=== PATIENT | female | born 1990 ===

== ENCOUNTER 2018-05-21 13:18 | Emergency (ER) | payer SELFPAY ==
[2018-05-21 13:35] VITALS: BP 139/74
[2018-05-21] MEDS ORDERED: NACL 0.9% 1000 ML 1,000 ML IV ONE (13:35)
[2018-05-21 13:58] LABS: Basophils # (Auto) 0.1 K/mm3 (0.0-0.1); Basophils % (Auto) 0.8 % (0.0-1.8); Eosinophils # (Auto) 0.1 K/mm3 (0.0-0.4); Eosinophils % (Auto) 1.1 % (0.0-4.3); Hematocrit 36.2 % (30.3-42.9); Hemoglobin 12.3 gm/dl (10.1-14.3); Lymphocytes # (Auto) 2.6 K/mm3 (1.2-5.4); Lymphocytes % (Auto) 27.1 % (13.4-35.0); Mean Corpuscular HGB Conc 34 % (30-34); Mean Corpuscular Volume 91 fl (79-97); Monocytes # (Auto) 0.5 K/mm3 (0.0-0.8); Monocytes % (Auto) 5.1 % (0.0-7.3); Platelet Count 385 K/mm3 (140-440); Red Blood Count 3.98 M/mm3 (3.65-5.03); Red Cell Distribution Width 13.3 % (13.2-15.2)
[2018-05-21 14:27] LABS: Alanine Aminotransferase 7 units/L (7-56); Albumin 3.9 g/dL (3.9-5); BUN/Creatinine Ratio 10; Blood Urea Nitrogen 6 mg/dL (7-17); Hemolysis Index 8
[2018-05-21] MEDS ORDERED: REGLAN PO ONE (16:15)
[2018-05-21] MEDS ORDERED: TYLENOL PO ONE (16:15)
--- NOTE | 2018-05-21 16:18 | Emergency Department Report ---
Addendum entered and electronically signed by APRIL VALERIO NP 05/25/18 11:35: Blank Doc - Documentation Documentation: Patient came in today for her discharge packet that she has been called to receive after patient Eloped. Patient is not known to me. Will print her packet and give it to patient with medications that was prescribed to her. Original Note: <KRISTIN RAJPUT A - Last Filed: 05/21/18 22:53> ED Abdominal Pain HPI - General Chief Complaint: Abdominal Pain Stated Complaint: LOWER ABD PAIN/ECTOPIC PREG Time Seen by Provider: 05/21/18 16:06 - History of Present Illness Initial Comments: Patient is a 27-year-old Female who presents to ED complaining of lower pelvic pain saying that she is proximal . Patient states she has not been seen to an MECHANICAL EQUIPMENT SALES ENGINEER for this . Patient states last menstrual period is 02/10/2018. Patient denies vaginal bleeding, leakage of fluids. Patient does mention that she has slight discharge. She denies dysuria, - Related Data Previous Rx's Medication Instructions Recorded Last Taken Type Acetaminophen [Tylenol] 325 mg PO TID #30 capsule 05/21/18 Unknown Rx Doxylamine Succinate/Vit B6 2 each PO QHS #40 tablet. 05/21/18 Unknown Rx [Francis Cuellar 10-10 mg Tablet] Nitrofurantoin Monohyd/M-Cryst 100 mg PO BID #14 capsule 05/21/18 Unknown Rx [Macrobid 100 mg Capsule] metroNIDAZOLE 0.75% [Vandazole 1 applicator VG QHS 5 Days #1 tube 05/21/18 Unknown Rx 0.75% VAGINAL] Allergies Allergy/AdvReac Type Severity Reaction Status Date / Time No Known Allergies Allergy Unverified 05/21/18 13:35 ED Past Medical Hx - Medications Home Medications: Home Medications Medication Instructions Recorded Confirmed Last Taken Type Acetaminophen [Tylenol] 325 mg PO TID #30 capsule 05/21/18 Unknown Rx Doxylamine Succinate/Vit B6 2 each PO QHS #40 tablet. 05/21/18 Unknown Rx [Francis Cuellar 10-10 mg Tablet] Nitrofurantoin Monohyd/M-Cryst 100 mg PO BID #14 capsule 05/21/18 Unknown Rx [Macrobid 100 mg Capsule] metroNIDAZOLE 0.75% [Vandazole 1 applicator VG QHS 5 Days #1 tube 05/21/18 Unknown Rx 0.75% VAGINAL] ED Physical Exam - External exam: Present: normal external exam. Absent: erythema, swelling, lesions, lacerations, bleeding Speculum exam: Present: vaginal discharge, cervical discharge. Absent: erythema, vaginal bleeding, foreign body, laceration Bi-manual exam: Present: adnexal tenderness (left). Absent: cervical motion tendernes ED Medical Decision Making - Lab Data Result diagrams: 05/21/18 13:41 05/21/18 13:41 - Radiology Data Radiology results: report reviewed, image reviewed FINAL REPORT EXAM: US OB lt; = 14 WEEKS FETUS HISTORY: Lower abdominal pain last menstrual period February 13, 2018. Estimated gestational age by dates is 13 weeks 6 days. TECHNIQUE: Transabdominal grayscale and color-flow imaging of the pelvis was performed. Comparison: None FINDINGS: The uterus measures 14.4 centimeters x 9.6 centimeters x 9.4 centimeters. There is demonstration of an intrauterine gestation. Estimated gestational age by measurements of biparietal diameter (2.34 centimeters) is 13 weeks 6 days and femoral length (1.3 centimeters) is 13 weeks 6 days. heart rate is measured at 152 beats per minute. The technologist notes visualization of body movements during real-time examination. The right ovary measures 2.8 centimeters x 1.3 centimeters x 4.2 centimeters and is unremarkable in appearance. The left ovary measures 3.4 centimeters x 2.1 centimeters x 2.7 centimeters and is unremarkable in appearance. No free fluid is demonstrated in the pelvis. IMPRESSION: 1. Demonstration of a single living intrauterine gestation with estimated gestational age of 13 weeks 6 days. - Medical Decision Making 27-year-old female presents with bilateral ligament pain and . Patient also positive for bacterial vaginitis. Patient left the ED weight weight area before ultrasound results came back. I called patient's phone number given on chart. Spoke to patient's mother is Brandee Trejo and discussed with the mother that patient is to return to the ED for treatment and discharge report Mother verifies that she will pass on this to the patient to return to the ED for prescriptions and paperwork MECHANICAL EQUIPMENT SALES ENGINEER referral was given to patient. I had initially discussed with the patient to follow up with an MECHANICAL EQUIPMENT SALES ENGINEER for care. Signed after my evaluation of palpation patient seemed in no acute or respiratory distress. Vital signs are normal. ED Disposition Clinical Impression: Bacterial vaginitis Abdominal pain Qualifiers: Abdominal location: lower abdomen, unspecified Qualified Code(s): R10.30 - Lower abdominal pain, unspecified UTI (urinary tract infection) during Qualifiers: Trimester: second trimester Qualified Code(s): O23.42 - Unspecified infection of urinary tract in , second trimester Disposition: ELOPED Is pt being admited?: No Does the pt Need Aspirin: No Condition: Stable Instructions: Bacterial Vaginosis (ED), Urinary Tract Infection in Women (ED), Abdominal Pain in (ED) Additional Instructions: Make sure to follow up with the MECHANICAL EQUIPMENT SALES ENGINEER as discussed. Take all your medications as you've been prescribed. If you have any worsening symptoms or develop new symptoms please return to ED immediately. Prescriptions: Doxylamine Succinate/Vit B6 [Diclegis Dr 10-10 mg Tablet] 2 each PO QHS #40 tablet. metroNIDAZOLE 0.75% [Vandazole 0.75% VAGINAL] 1 applicator VG QHS 5 Days #1 tube Acetaminophen [Tylenol] 325 mg PO TID #30 capsule Nitrofurantoin Monohyd/M-Cryst [Macrobid 100 mg Capsule] 100 mg PO BID #14 capsule Referrals: PRIMARY CARE,MD [Primary Care Provider] - 3-5 Days ALETHEA GALLEGOS MD [Referring] - 3-5 Days MINH MITCHELL MD [Referring] - 3-5 Days SADIE MITCHELL MD [Referring] - 3-5 Days SONIDO HERNANDEZ [Staff Physician] - 3-5 Days Forms: STI Treatment and Prevention, Work/School Release Form(ED) <BABAK MONTEIRO - Last Filed: 05/22/18 20:22> ED Abdominal Pain HPI - General Source: patient Mode of arrival: Ambulatory Limitations: No Limitations - History of Present Illness Complaint: abdominal pain -: Gradual Location: LLQ, RLQ, suprapubic Radiation: none Migration to: no migration Severity: moderate Severity scale (0 -10): 4 Quality: cramping, sharp Consistency: constant Improves With: nothing Worsens With: nothing Associated Symptoms: nausea, vomiting - Related Data LMP (females 10-50): other (4 months) ED Review of Systems ROS: Stated complaint: LOWER ABD PAIN/ECTOPIC PREG Other details as noted in HPI Comment: All other systems reviewed and negative Constitutional: denies: chills, fever Eyes: denies: eye pain, eye discharge, vision change ENT: denies: ear pain, throat pain Respiratory: denies: cough, shortness of breath, wheezing Cardiovascular: denies: chest pain, palpitations Endocrine: no symptoms reported Gastrointestinal: abdominal pain, nausea, vomiting. denies: diarrhea Genitourinary: denies: urgency, dysuria, discharge Musculoskeletal: denies: back pain, joint swelling, arthralgia Skin: denies: rash, lesions Neurological: denies: headache, weakness, paresthesias Psychiatric: denies: anxiety, depression Hematological/Lymphatic: denies: easy bleeding, easy bruising ED Past Medical Hx - Past Medical History Previous Medical History?: No - Surgical History Past Surgical History?: No - Social History Smoking Status: Current Every Day Smoker Substance Use Type: None ED Physical Exam - General Limitations: No Limitations General appearance: alert, in no apparent distress - Head Head exam: Present: atraumatic, normocephalic - Eye Eye exam: Present: normal appearance - ENT ENT exam: Present: mucous membranes moist - Neck Neck exam: Present: normal inspection - Respiratory Respiratory exam: Present: normal lung sounds bilaterally. Absent: respiratory distress - Cardiovascular Cardiovascular Exam: Present: regular rate, normal rhythm. Absent: systolic murmur, diastolic murmur, rubs, gallop - GI/Abdominal GI/Abdominal exam: Present: soft, tenderness (Lower abdomen mild tenederness to palpation.), normal bowel sounds - Rectal Rectal exam: Present: deferred - Extremities Exam Extremities exam: Present: normal inspection, full ROM, normal capillary refill - Back Exam Back exam: Present: normal inspection, full ROM - Neurological Exam Neurological exam: Present: alert, oriented X3 - Psychiatric Psychiatric exam: Present: normal affect, normal mood - Skin Skin exam: Present: warm, dry, intact, normal color. Absent: rash ED Course Vital Signs 05/21/18 05/21/18 05/21/18 13:33 16:02 16:59 Temperature 98.6 F Pulse Rate 89 Respiratory 18 17 18 Rate Blood Pressure 139/74 O2 Sat by Pulse 98 Oximetry ED Medical Decision Making - Lab Data Result diagrams: 05/21/18 13:41 05/21/18 13:41 Lab Results 05/21/18 05/21/18 05/21/18 Range/Units 13:41 13:41 13:41 WBC 9.5 (4.5-11.0) K/mm3 RBC 3.98 (3.65-5.03) M/mm3 Hgb 12.3 (10.1-14.3) gm/dl Hct 36.2 (30.3-42.9) % MCV 91 (79-97) fl MCH 31 (28-32) pg MCHC 34 (30-34) % RDW 13.3 (13.2-15.2) % Plt Count 385 (140-440) K/mm3 Lymph % (Auto) 27.1 (13.4-35.0) % [place] % (Auto) 5.1 (0.0-7.3) % Eos % (Auto) 1.1 (0.0-4.3) % Baso % (Auto) 0.8 (0.0-1.8) % Lymph # 2.6 (1.2-5.4) K/mm3 [place] # 0.5 (0.0-0.8) K/mm3 Eos # 0.1 (0.0-0.4) K/mm3 Baso # 0.1 (0.0-0.1) K/mm3 Seg Neutrophils % 65.9 (40.0-70.0) % Seg Neutrophils # 6.2 (1.8-7.7) K/mm3 Sodium 137 (137-145) mmol/L Potassium 3.8 (3.6-5.0) mmol/L Chloride 100.6 (98-107) mmol/L Carbon Dioxide 24 (22-30) mmol/L Anion Gap 16 mmol/L BUN 6 L (7-17) mg/dL Creatinine 0.6 L (0.7-1.2) mg/dL Estimated GFR > 60 ml/min BUN/Creatinine Ratio 10 % Glucose 85 (65-100) mg/dL Calcium 9.0 (8.4-10.2) mg/dL Total Bilirubin < 0.20 (0.1-1.2) mg/dL AST 12 (5-40) units/L ALT 7 (7-56) units/L Alkaline Phosphatase 41 (35-129) units/L Total Protein 6.5 (6.3-8.2) g/dL Albumin 3.9 (3.9-5) g/dL Albumin/Globulin Ratio 1.5 % HCG, Quant 60495 H (0-4) mIU/mL - Radiology Data Radiology results: report reviewed, image reviewed Critical care attestation.: If time is entered above; I have spent that time in minutes in the direct care of this critically ill patient, excluding procedure time. ED Disposition Is pt being admited?: No Does the pt Need Aspirin: No
[2018-05-21 18:29] LABS: Bacteria,Urine 1+ /HPF (Negative); Bilirubin,Urine NEG (Negative); Blood,Urine NEG (Negative); Color,Urine Yellow (Yellow); Mucus,Urine 3+ /HPF; Urobilinogen,Urine < 2.0 mg/dL (<2.0)
--- NOTE | 2018-05-21 19:41 | Ultrasound Report ---
FINAL REPORT EXAM: US OB <= 14 WEEKS FETUS HISTORY: Lower abdominal pain last menstrual period February 13, 2018. Estimated gestational age by dates is 13 weeks 6 days. TECHNIQUE: Transabdominal grayscale and color-flow imaging of the pelvis was performed. Comparison: None FINDINGS: The uterus measures 14.4 centimeters x 9.6 centimeters x 9.4 centimeters. There is demonstration of an intrauterine gestation. Estimated gestational age by measurements of bip arietal diameter (2.34 centimeters) is 13 weeks 6 days and femoral length (1.3 centimeters) is 13 wee ks 6 days. heart rate is measured at 152 beats per minute. The technologist notes visualization of body movements during real-time examination. The right ovary measures 2.8 centimeters x 1.3 centimeters x 4.2 centimeters and is unremarkable in a ppearance. The left ovary measures 3.4 centimeters x 2.1 centimeters x 2.7 centimeters and is unremarkable in ap pearance. No free fluid is demonstrated in the pelvis. IMPRESSION: 1. Demonstration of a single living intrauterine gestation with estimated gestational age of 13 weeks 6 days.
== END 2018-05-21 18:50 | disposition left against medical advice (07) ==
LOC: ED 13:18
DX: O23.41 Unspecified infection of urinary tract in pregnancy, first trimester (principal); O23.591 Infection of other part of genital tract in pregnancy, first trimester; N76.0 Acute vaginitis; Z3A.13 13 weeks gestation of pregnancy
CPT/HCPCS: 36415; 76801; 80053; 81001; 84702; 85025; 87210; 87591